=== PATIENT | male | born 1965 | race Caucasian/White ===

== ENCOUNTER → 2017-03-12 | Outpatient (CLI) | payer BC ==
[~2017-03-12] MED LIST: IBUP-1050 PO; SIMV10TA2 PO; [UNRECOGNIZED DRUG - REMARK] PO
[2017-03-12 10:39] LABS: ALT/SGPT 48 U/L (12-78); AST/SGOT 24 U/L (15-37); BLOOD UREA NITROGEN 15 mg/dl (7-18); BUN/CREATININE RATIO 13.6 (10-20); CARBON DIOXIDE 29 mmol/L (21-32); CHLORIDE 106 mmol/L (98-107); GLUCOSE 92 mg/dl (70-99); SODIUM 142 mmol/L (136-145)
[2017-03-12 10:51] LABS: ALB/GLOB RATIO 1.2 (0.9-2); ALKALINE PHOSPHATASE 83 U/L (45-117); CHOLESTEROL 193 mg/dl (0-200); HDL CHOLESTEROL 65 mg/dl; LDL CHOLESTEROL CALCULATED 114 mg/dl; TRIGLYCERIDES 68 mg/dl (0-150); VERY LOW DENSITY LIPOPROT CALC 14 mg/dl
== END | disposition home or self-care (01) ==
LOC: C.LAB1850 09:04
PROVIDERS: ATTEND Internal Medicine
DX: E78.5 Hyperlipidemia, unspecified (principal); Z86.39 Personal history of other endocrine, nutritional and metabolic disease; H81.09 Meniere's disease, unspecified ear

== ENCOUNTER → 2017-12-03 | Outpatient (CLI) | payer BC | END | disposition home or self-care (01) | LOC: C.LAB1850 10:41 | PROVIDERS: ATTEND Physician Assistant | DX: R33.9 Retention of urine, unspecified (principal) ==

== ENCOUNTER → 2018-04-22 | Day surgery (SDC) | payer BC ==
[2018-04-16 09:17] VITALS: Ht 185.4 cm; Wt 90.9 kg
[~2018-04-22] VITALS: Ht 185.4 cm; Wt 90.9 kg
[~2018-04-22] MED LIST changes: +BUPR200T2 PO; +CLR10 PO; +LIDOCAINE HCL 2% 2 ML VIAL (20MG/ML) ONE; +MIDAZOLAM HCL 1 MG/ML 2ML VIAL ONE; +ONDANSETRON INJ 2 MG/ML 2 ML VIAL ONE; +PROPOFOL IV EMULSION 10 MG/ML 20 ML VIAL ONE; +TRIATAB3 PO; -[UNRECOGNIZED DRUG - REMARK] PO
--- NOTE | 2018-04-22 10:05 | Endo History and Physical ---
History & Physical Date of Service: Apr 22, 2018. Chief Complaint: screening Referring Physician: Dr. Huang History of Present Illness 53 yo CM who presents for screening colonoscopy. Past Surgical History Hx Cardiac Surgery: No Hx Internal Defibrillator: No Hx Pacemaker: No Hx Abdominal Surgery: Yes (APPENDECTOMY) Hx of Implantable Prosthesis: No Hx Post-Op Nausea and Vomiting: No Hx Cancer Surgery: No Hx Thoracic Surgery: No Hx Orthopedic: No Hx Urinary Tract Surgery: No Family History Colon CA, Polyp Social History Smoking Status: Never Smoker Hx Substance Use: No Hx Alcohol Use: Yes (RARELY) Allergies Coded Allergies: Erythromycin (Unverified Allergy, Mild, BLACK HAIRY TONGUE, 04/22/18) Azithromycin (Unverified Allergy, Unknown, black hairy tongue, 04/22/18) Current Medications Reported Home Medications Medications Dose Route/Sig Max Daily Dose Days Date Category Dose Instructions Wellbutrin Sr (Bupropion HCl) 200 Mg Ertab 200 Mg PO QAM 04/16/18 Reported Triamterene/Hctz 37.5-25MG (Triamterene/HCTZ) 1 Tab Tab 1 Tab PO QAM 04/16/18 Reported Claritin (Loratadine) 10 Mg Tab 10 Mg PO QAM 04/16/18 Reported Advil (Ibuprofen) 200 Mg Tab 400-600 Mg PO PRN 10/07/11 Reported 1500 last dose Zocor (Simvastatin) 10 Mg Tab 10 Mg PO QPM 09/20/11 Reported Vital Signs Weight (Kilograms): 90.91 Height (Feet): 6 Height (Inches): 1 Date Time Temp Pulse Resp B/P (MAP) Pulse Ox O2 Delivery O2 Flow Rate FiO2 04/22/18 09:30 37 88 20 131/76 (94) 99 Room Air Physical Exam General Appearance: WD/WN, no apparent distress Respiratory/Chest: Auscultation: breath sounds normal Cardiovascular: Heart Auscultation: RRR Abdomen: Bowel Sounds: normal Inspection & Palpation: soft, non-distended, no tenderness, guarding & rebound Assessment and Plan Assessment: 53 yo CM who presents for screening colonoscopy. Plan: Proceed with colonoscopy.
--- NOTE | 2018-04-22 11:08 | Discharge Instructions ---
Endoscopy Patient Instructions Date / Procedure(s) Performed Apr 22, 2018. Colonoscopy Allergy Information Coded Allergies: Erythromycin (Unverified Allergy, Mild, BLACK HAIRY TONGUE, 04/22/18) Azithromycin (Unverified Allergy, Unknown, black hairy tongue, 04/22/18) Discharge Date / Findings Apr 22, 2018. Colon polyps x2 Rectal polyps x2 Diverticulosis Medication Instructions OK to resume all medications today as prescribed Reported Home Medications Medications Dose Route/Sig Max Daily Dose Days Date Category Dose Instructions Wellbutrin Sr (Bupropion HCl) 200 Mg Ertab 200 Mg PO QAM 04/16/18 Reported Triamterene/Hctz 37.5-25MG (Triamterene/HCTZ) 1 Tab Tab 1 Tab PO QAM 04/16/18 Reported Claritin (Loratadine) 10 Mg Tab 10 Mg PO QAM 04/16/18 Reported Advil (Ibuprofen) 200 Mg Tab 400-600 Mg PO PRN 10/07/11 Reported 1500 last dose Zocor (Simvastatin) 10 Mg Tab 10 Mg PO QPM 09/20/11 Reported Provider Instructions Activity Restrictions - No exercising or heavy lifting for 24 hours. - Do not drink alcohol the day of the procedure. - Do not drive a car or operate machinery until the day after the procedure. - Do not make any important decisions or sign important papers in 24 hours after the procedure. Following Day: - Return to full activity which may include returning to work/school. Diet Start your diet with liquids and light foods (jello, soup, juice, toast). Then eat your usual diet if not nauseated. Treatment For Common After Affects For mild abdominal pain, bloating, or excessive gas: - Rest - Eat lightly - Lie on right side Follow-Up Information Follow-up with Dr. Huang as scheduled Anesthesia Information What You Should Know You have had a procedure that required some medicine to reduce anxiety and discomfort. This treatment is called moderate sedation. After receiving the treatment, you may be sleepy, but you will be able to breathe on your own. The effects of the treatment may last for several hours. Follow these instructions along with Activity/Diet recommendations noted above: * Do NOT do anything where dizziness or clumsiness would be dangerous. * Rest quietly at home today, then you can be up and about tomorrow. * Have a responsible person stay with you the rest of today. * You may have had an I.V. today. If so, you may take the dressing off later today. Recommendations Call your doctor if: * Trouble breathing * Continuous vomiting for more than 24 hours * Temperature above 101 degrees * Severe abdominal pain or bloating * Pain not relieved by pain medicine ordered * There is increased drainage or redness from any incision * A large amount of rectal bleeding greater than 2-3 tablespoons. (If you had a polyp/s removed or have hemorrhoids, a small amount of blood - from the rectum is to be expected.) * You have any unanswered questions or concerns. IN THE EVENT OF A SERIOUS EMERGENCY, GO TO THE NEAREST EMERGENCY ROOM Your discharge instructions were prepared by provider Sebastien Dyer. Patient Instructions Signature Page Valentin Prater Patient (or Guardian) Signature/Date: I have read and understand the instructions given to me by my caregivers. Caregiver/RN/Doctor Signature/Date: The above-named patient and/or guardian has received patient instructions on this date. + Original Patient Signature Page (only) stays with chart. Please make copy for patient.
--- NOTE | 2018-04-22 11:17 | GI REPORT ---
Patient Name: Valentin Prater Procedure Date: 04/22/2018 10:13 AM Date of : 1965 Admit Type: Outpatient Age: 53 Gender: Male Attending MD: Sebastien Dyer DO Procedure: Colonoscopy Providers: Sebastien Dyer DO Referring MD: Deniz Salazar Indications: Screening for colorectal malignant neoplasm Medicines: Monitored Anesthesia Care Complications: No immediate complications. Estimated Blood Loss: Estimated blood loss: none. Procedure: Pre-Anesthesia Assessment: - Prior to the procedure, a History and Physical was performed, and patient medications and allergies were reviewed. The patient's tolerance of previous anesthesia was also reviewed. The risks and benefits of the procedure and the sedation options and risks were discussed with the patient. All questions were answered, and informed consent was obtained. Prior Anticoagulants: The patient has taken no previous anticoagulant or antiplatelet agents. ASA Grade Assessment: II - A patient with mild systemic disease. After reviewing the risks and benefits, the patient was deemed in satisfactory condition to undergo the procedure. After I obtained informed consent, the scope was passed under direct vision. Throughout the procedure, the patient's blood pressure, pulse, and oxygen saturations were monitored continuously. The Scope was introduced through the anus and advanced to the terminal ileum. The colonoscopy was performed without difficulty. The patient tolerated the procedure well. The quality of the bowel preparation was good. The terminal ileum, ileocecal valve, appendiceal orifice, and rectum were photographed. Findings: The perianal and digital rectal examinations were normal. A 25 mm polyp was found in the cecum. The polyp was flat. The polyp was removed with a saline injection-lift technique using a hot snare at 20 canales. Resection and retrieval were complete. One hemostatic clip was successfully placed (MR conditional). A 6 mm polyp was found in the cecum. The polyp was sessile. The polyp was removed with a hot snare. Resection and retrieval were complete. To prevent bleeding after the polypectomy, one hemostatic clip was successfully placed (MR conditional). There was no bleeding at the end of the procedure. Multiple small-mouthed diverticula were found in the sigmoid colon. A 5 mm polyp was found in the rectum. The polyp was sessile. The polyp was removed with a hot snare. Resection and retrieval were complete. A 3 mm polyp was found in the rectum. The polyp was sessile. The polyp was removed with a cold biopsy forceps. Resection and retrieval were complete. Impression: - One 25 mm polyp in the cecum, removed using injection-lift with 14 ml of normal saline and a hot snare with piecemeal removal. Resected and retrieved. Clip (MR conditional) was placed. - One 6 mm polyp in the cecum, removed with a hot snare. Resected and retrieved. Clip (MR conditional) was placed. - Diverticulosis in the sigmoid colon. - One 5 mm polyp in the rectum, removed with a hot snare. Resected and retrieved. - One 3 mm polyp in the rectum, removed with a cold biopsy forceps. Resected and retrieved. Recommendation: - Resume previous diet. - Continue present medications. - Repeat colonoscopy in 6 months for surveillance after piecemeal polypectomy. - Return to primary care physician as previously scheduled. Sebastien Dyer, 04/22/2018 11:16:34 AM This report has been signed electronically. Note Initiated On: 04/22/2018 10:13 AM Number of Addenda: 0 I attest to the content of the Intraoperative Record and orders documented therein, exceptions below {[id number]}
[2018-04-22 11:40] VITALS: BP 100/71; PULSE 71; O2SAT 98
--- NOTE | 2018-04-22 14:07 | Anesthesiology Progress Note ---
Anesthesia Post Op Note Date & Time Apr 22, 2018 at 14:07 Vital Signs Pain Intensity: 0 Vital Signs Past 12 Hours Date Time Temp Pulse Resp B/P (MAP) Pulse Ox O2 Delivery O2 Flow Rate FiO2 04/22/18 11:40 71 18 100/71 (81) 98 Room Air 04/22/18 11:25 72 18 102/55 (71) 97 Room Air 04/22/18 11:10 37 74 16 95/61 (72) 97 Room Air 04/22/18 09:30 37 88 20 131/76 (94) 99 Room Air Notes Mental Status: alert / awake / arousable, participated in evaluation Pt Amnestic to Procedure: Yes Nausea / Vomiting: adequately controlled Pain: adequately controlled Airway Patency, RR, SpO2: stable & adequate BP & HR: stable & adequate Hydration State: stable & adequate Anesthetic Complications: no major complications apparent
== END | disposition home or self-care (01) ==
LOC: C.GI 08:58
PROVIDERS: ATTEND Internal Medicine
DX: Z12.11 Encounter for screening for malignant neoplasm of colon (principal); D12.0 Benign neoplasm of cecum; D12.8 Benign neoplasm of rectum; K57.30 Diverticulosis of large intestine without perforation or abscess without bleeding; Z80.0 Family history of malignant neoplasm of digestive organs; Z88.1 Allergy status to other antibiotic agents; Z79.899 Other long term (current) drug therapy; F32.9 Major depressive disorder, single episode, unspecified; H81.09 Meniere's disease, unspecified ear